=== PATIENT | male | born 2000 | race Caucasian/White ===

== ENCOUNTER 2018-10-30 09:46 | Emergency (ER) | payer OTHER ==
[~2018-10-30] VITALS: Ht 180.3 cm; Wt 81.8 kg
[2018-10-30] MEDS ORDERED: dexameTHASONE 20 MG/5 ML VIAL (J1100) IV ONE (11:00)
[2018-10-30 11:24] LABS: BASO # 0.1 10^3/uL (0.0-0.2); BASO % 0.7 % (0.0-1.0); EOS # 0.2 10^3/uL (0.0-0.50); HEMOGLOBIN 15.8 g/dl (13.5-17.5); LYMPH # 1.8 10^3/uL (1.5-6.5); LYMPH % 17.3 % (24.0-44.0); MEAN CORPUSCULAR HEMOGLOBIN 30.1 pg (27.0-33.0); MEAN CORPUSCULAR HGB CONC 33.6 g/dl (32.0-36.5); MEAN CORPUSCULAR VOLUME 89.5 fl (80.0-96.0); MONO # 0.9 10^3/uL (0.0-0.8); MONO % 8.2 % (0.0-5.0); NEUTROPHILS # 7.4 10^3/uL (1.8-7.7); NEUTROPHILS % 71.6 % (36.0-66.0); PLATELET COUNT, AUTOMATED 321 10^3/uL (150-450); RED BLOOD COUNT 5.25 10^6/uL (4.30-6.10); WHITE BLOOD COUNT 10.4 10^3/uL (4.0-10.0)
[2018-10-30 11:43] LABS: ERYTHROCYTE SEDIMENTATION RATE 8 mm/hr (0-15)
[2018-10-30 11:49] LABS: C REACTIVE PROTEIN QUANTITATIV 1.73 MG/DL (0.00-0.30)
[2018-10-30 11:56] LABS: MONO REFLEX EBV COMP NEGATIVE (NEGATIVE)
[2018-10-30] MEDS ORDERED: ISOVUE-370 76% 100ML VIAL (Q9967) As Ordered ONE (12:03)
--- NOTE | 2018-10-30 13:29 | REP ---
Soft-tissue neck CT study with IV contrast: History: Left tonsillar swelling. Rule out abscess. CT contrast dose: 75 mL of intravenous Isovue [address] findings: Preliminary soft tissue lateral signal timer view shows prominent tonsillar soft tissues. Axial CT images demonstrate that the visualized paranasal sinuses are essentially clear. There is a small mucous retention cyst in one of the right posterior ethmoid air cells. No bony destructive lesion is seen. No intraorbital abnormality is observed. Anterior nasal septum deviates somewhat to the left. The visualized intracranial structures are unremarkable. The tonsils are enlarged bilaterally, left more so than right. There is a ill-defined 9 mm area of low density in the lateral aspect of the left tonsillar soft tissues which could be a phlegmon versus developing abscess. There is considerable edema in the peritonsillar soft tissue superior to this along the left nasal pharyngeal wall. The right tonsillar soft tissues are homogeneous. Adenoidal soft tissues are not felt to be enlarged. Retropharyngeal soft tissues are not widened. There is adenopathy in the left anterior neck presumably reactive. The largest anterior jugular lymph node on the left measures 16 x 29 x 12 mm. Below this at the level of the carotid bifurcation there is a left anterior cervical lymph node measuring 13 x 27 x 11 mm. No necrotic adenopathy is appreciated. Submandibular, parotid and thyroid glands are normal and symmetric. No glottic or subglottic airway lesion is seen. No vascular abnormalities observed. The lung apices are clear. Impression: Enlargement of the tonsils, left more so than right. There is considerable peritonsillar edema along the superior aspect of the left tonsillar soft tissues extending into the lateral wall of the left nasopharynx. There is a 9 mm low density area with ill-defined margins in the lateral soft tissues of the left tonsil. This could be a developing abscess. Electronically Signed by Donal Lopez MD 10/30/2018 04:33 P
[2018-10-30] MEDS ORDERED: CLINDAMYCIN 900 MG in APPROPRIATE DILUENT 1 EA IV ONE (13:30)
[2018-10-30] MEDS ORDERED: CLEO300C2 PO (13:56)
[2018-10-30] MEDS ORDERED: MEDR4PAK PO (13:56)
[2018-10-30 14:04] VITALS: BP 129/60
[2018-11-01 00:11] LABS: EBV AB TO NUCLEAR ANTIGEN >600.0 U/mL (0.0-17.9); EBV VIRAL CAPSID AG IgM <36.0 U/mL (0.0-35.9)
--- NOTE | 2018-11-04 14:13 | ED PDOC ---
Post-Departure Follow-Up dr farrell faxed formal report of ct neck for fu Harshad Sellers MD Nov 04, 2018 14:13
== END 2018-10-30 14:43 | disposition home or self-care (01) ==
LOC: M ED 09:46
DX: J35.1 Hypertrophy of tonsils (principal)
CPT/HCPCS: 70491; 80047; 83605; 85025; 85652; 86140; 86308; 86663; 86664; 86665; 87040; 87880; 96365; 96375; 99284; J1100; Q9967

== ENCOUNTER 2018-12-16 08:56 | Day surgery (SDC) | payer OTHER ==
[~2018-12-16] VITALS: Ht 182.9 cm; Wt 81.6 kg
[~2018-12-16 08:56] MED LIST: CLEO300C2 PO; MEDR4PAK PO
[2018-12-16] MEDS ORDERED: IBUP1TAB7 PO (09:38)
[2018-12-16] MEDS ORDERED: PERCOCET PO (09:43)
[2018-12-16] MEDS ORDERED: HYDR1SOL22 PO (09:43)
[2018-12-16] MEDS ORDERED: CEPH250REC PO (09:43)
[2018-12-16] MEDS ORDERED: BUPIVACAINE HCL 0.5% 30 ML VIAL As Ordered ONE (10:16)
[2018-12-16] MEDS ORDERED: fentaNYL 100 MCG/2 ML INJECTION (J3010) As Ordered ONE ×2 (10:39→12:11)
[2018-12-16] MEDS ORDERED: SUCCINYLCHOLINE 100 MG/5 ML SYRINGE (J0330) As Ordered ONE (10:39)
[2018-12-16] MEDS ORDERED: ROCURONIUM BROMIDE 50 MG/5 ML VIAL As Ordered ONE (10:39)
[2018-12-16] MEDS ORDERED: MIDAZOLAM INJ 2 MG/2 ML VIAL (J2250) As Ordered ONE (10:39)
[2018-12-16] MEDS ORDERED: dexameTHASONE 4 MG/ML 1ML VIAL (J1100) As Ordered ONE (10:39)
[2018-12-16] MEDS ORDERED: ONDANSETRON 4MG/2ML VIAL (J2405) As Ordered ONE (10:39)
[2018-12-16] MEDS ORDERED: LIDOCAINE 2% INJ 100 MG/5 ML SDV (FOR ANES.) As Ordered ONE (10:39)
[2018-12-16] MEDS ORDERED: PROPOFOL 200 MG/20 ML VIAL As Ordered ONE (10:39)
[2018-12-16] MEDS ORDERED: ACETAMINOPHEN 1000MG 100ML IV BTL (OFIRMEV) (J0131 PER 10MG) As Ordered ONE (10:39)
[2018-12-16] MEDS ORDERED: HYDROmorphone HCL 2 MG/ML 1ML VIAL (J1170) As Ordered ONE (10:55)
[2018-12-16] MEDS ORDERED: MEPERIDINE INJ 25 MG/ML VIAL (J2175) As Ordered ONE (11:51)
[2018-12-16] MEDS ORDERED: IBUPROFEN 800 MG TAB PO PRN (12:30)
[2018-12-16] MEDS ORDERED: HYDROcodone/APAP LIQUID 7.5-325MG 15ML UDC (LORTAB ELIXIR) PO PRN (12:30)
[2018-12-16] MEDS ORDERED: ONDANSETRON 4MG/2ML VIAL (J2405) IV PRN (12:30)
[2018-12-16] MEDS ORDERED: oxyCODONE 5MG TAB PO PRN (12:30)
[2018-12-16] MEDS ORDERED: METOCLOPRAMIDE INJ 10MG/2ML VIAL (J2765) IV PRN (12:30)
[2018-12-16] MEDS ORDERED: fentaNYL 100 MCG/2 ML INJECTION (J3010) IV PRN (12:30)
[2018-12-16] MEDS ORDERED: PERCOCET 5MG/325MG TAB PO PRN (12:30)
[2018-12-16] MEDS ORDERED: LR 1,000 ML IV SCH (12:30)
[2018-12-16] MEDS ORDERED: MEPERIDINE INJ 25 MG/ML VIAL (J2175) IV PRN (12:30)
[2018-12-16 13:56] VITALS: BP 137/77
--- NOTE | 2018-12-18 14:45 | RO ---
DATE OF PROCEDURE: 12/16/2018 PREPROCEDURE DIAGNOSIS: Tonsillar hypertrophy and chronic tonsillitis. POSTPROCEDURE DIAGNOSIS: Tonsillar hypertrophy and chronic tonsillitis. PROCEDURE: Tonsillectomy. SURGEON: Dr. Morgan Domínguez. JOY OPERATOR HELPER: ANESTHESIA: General endotracheal. INDICATION: This is a 18-year-old old with a long history of tonsillar hypertrophy, snoring and some obstruction of breathing at night. DESCRIPTION OF PROCEDURE: Satisfactory general endotracheal anesthesia was administered. Patient was placed in Trendelenburg position. Jackson-Isacc gag inserted. These tonsils were some of the largest I have ever seen in a 30-year career. Not only were the almost kissing, when they were retracted medially, the lateral margin of the tonsil was still an inch underneath the anterior pilar indicating a deeply imbedded tonsil. Tonsillectomy was done in the usual fashion using a cutting cautery to make an incision on the anterior pillar 3 mm from its edge. Once the capsule of the tonsil was identified, the cautery was used to dissect the tonsil from the underlying anterior pillar and then ultimately it was mobilized medially and inferiorly from the constrictor. Small vessels encountered were coagulated as the dissection continued inferiorly. The posterior pillar was incised along its edge to mobilize the tonsil from that. Once the tonsil was suspended only at the inferior pole, coagulation current was used to inflate the tissue. There was no significant bleeding encountered during dissection. There were some large plexus vessels identified in the bed of the constrictor. For security, these were sewn with a #3-0 Vicryl [id number] suture. Next, the left tonsil was removed in a similar fashion with similar findings. Security of the dissection was done by placing some strategically placed #3-0 chromic sutures in the small plexus vessels could be seen underneath superficial fascia of the constrictor muscle. Once this was done, 0.5% Marcaine was injected into the surgical site. The gag was released at 3 minutes, re-inspection showed no active bleeding. The patient was awakened and extubated and sent to the recovery room in satisfactory condition. He will be discharged home on Percocet or Hycet elixir for pain, Motrin 800 mg. He will be seen in the office in 1 week.
== END 2018-12-16 13:57 | disposition home or self-care (01) ==
LOC: M SDC 08:56
PROVIDERS: ATTEND Specialist
DX: J35.1 Hypertrophy of tonsils (principal); F17.220 Nicotine dependence, chewing tobacco, uncomplicated
CPT/HCPCS: 42826; 88302; J0131; J0330; J1100; J1170; J2175; J2250; J2405; J3010